=== PATIENT | male | born 1965 | race Caucasian/White ===

== ENCOUNTER 2019-10-24 16:25 | Emergency (ER) | payer BC ==
[~2019-10-24] VITALS: Ht 180.3 cm; Wt 96.3 kg
[~2019-10-24 16:25] MED LIST: AMOXICILLIN/CL875 MG OR; BACTRIM DS1 TAB PO; DOXYCYCL HYC100 M3 OR; EFFEXOR XR150 MG PO; EFFEXOR XR75 MG PO; LORTAB5 PO; ZYRTEC-D AL1 OR
[2019-10-24 16:53] LABS: HEMATOCRIT 45.3 % (39.0-50.0); HEMOGLOBIN 15.2 g/dl (14.0-18.0); IMMATURE GRANULOCYTES 0.2 % (0.0-5.0); MEAN CELL VOLUME 95.2 fL CALC (80.0-100.0); MEAN CORPUSCULAR HGB 31.9 pG CALC (26.0-32.0); MEAN CORPUSCULAR HGB CONC 33.6 g/dL CAL (32.0-36.0); NEUT# 2.78 thou/uL (1.82-7.42); RED BLOOD COUNT 4.76 mill/uL (4.70-6.10)
[2019-10-24 17:15] LABS: ALBUMIN 4.8 g/dL (3.2-5.0); ALKALINE PHOSPHATASE 101 u/l (38-126); ANION GAP 14 (6-22 (CALC)); BUN 25 mg/dL (9-20); BUN/CREATININE RATIO 30 (12-20 (CALC)); C-REACTIVE PROTEIN 1.4 mg/dL (0-0.9); CARBON DIOXIDE 25 mmol/l (22-30); CHLORIDE 102 mmol/l (95-108); CREATININE 0.8 mg/dL (0.7-1.3); GFR > 60 ML/MIN (>=60 (CALC)); GFR FOR AFR.AMER. > 60 ML/MIN (>=60 (CALC)); POTASSIUM 4.3 mmol/l (3.5-5.1); SGOT/AST 52 u/l (17-59); SODIUM 137 mmol/l (137-146); TOTAL PROTEIN 8.1 g/dL (6.3-8.2)
[2019-10-24 17:20] LABS: BILIRUBIN, TOTAL 0.4 mg/dL (0.0-1.4)
[2019-10-24 18:04] VITALS: BP 133/76
== END 2019-10-24 18:10 | disposition home or self-care (01) | DRG 866 ==
LOC: ED 16:25
DX: B34.9 Viral infection, unspecified (principal); Z20.828 Contact with and (suspected) exposure to other viral communicable diseases